=== PATIENT | female | born 1985 | race Caucasian/White ===

== ENCOUNTER 2022-09-08 12:24 | Emergency (ER) | payer MEDICAID ==
[~2022-09-08] VITALS: Ht 172.7 cm; Wt 59.0 kg
[2022-09-08 12:41] VITALS: BP 110/77
[2022-09-08] MEDS ORDERED: METH4TAB3 PO (13:49)
[2022-09-08] MEDS ORDERED: NYST15CR TP (13:49)
[2022-09-08] MEDS ORDERED: CLIN300C12 PO (13:49)
--- NOTE | 2022-09-08 13:58 | NUR ---
Patient discharged to home in stable condition. Written and verbal after care instructions given. Patient verbalizes understanding of instruction.
== END 2022-09-08 14:00 | disposition home or self-care (01) ==
LOC: ER 12:34
DX: R21 Rash and other nonspecific skin eruption (principal); Z79.899 Other long term (current) drug therapy

== ENCOUNTER 2022-09-26 09:44 | Emergency (ER) | payer SELFPAY ==
[~2022-09-26] VITALS: Ht 172.7 cm; Wt 54.4 kg
[~2022-09-26 09:44] MED LIST: CLIN300C12 PO; METH4TAB3 PO; NYST15CR TP
[2022-09-26 09:53] VITALS: BP 101/65
[2022-09-26] MEDS ORDERED: FLUORESCEIN SODIUM OPHTH 1 EA STRIP ONE (10:29)
[2022-09-26] MEDS ORDERED: FLUORESCEIN SODIUM OPHTH 1 EA STRIP OP ONE (10:30)
[2022-09-26] MEDS ORDERED: ERYT3.5O9 EACHEYE (10:41)
== END 2022-09-26 11:11 | disposition home or self-care (01) ==
LOC: ER 09:51
DX: J06.9 Acute upper respiratory infection, unspecified (principal); H10.9 Unspecified conjunctivitis